=== PATIENT | female | born 1955 | race Caucasian/White ===

== ENCOUNTER 2020-11-16 09:29 | Emergency (ER) | payer MEDICARE ==
[2020-11-16 09:57] LABS: BASOPHIL 0.5 % (0-2); EOSINOPHIL 1.9 % (0-7); HGB 14.8 g/dl (12.5-16.0); MCH 29.8 pg (25.0-31.0); MCHC 30.8 g/dL (32.0-36.0); MCV 96.8 fL (78.0-100.0); MONOCYTE 5.1 % (0-12); MPV 9.4 fL (6.0-9.5); NEUTROPHIL 57.3 % (41-80); NRBC 0; PLT 285 K/uL (150-400); RBC 4.96 M/uL (4.20-5.40)
[2020-11-16 10:02] LABS: LYMPHOCYTE 34.9 % (15-48)
[2020-11-16 10:09] LABS: INR 1.07 (0.9-1.2); PROTHROMBIN TIME 13.2 SECONDS (11.4-13.6); PTT 30.1 SECONDS (22.2-34.7)
[2020-11-16 10:21] LABS: ALBUMIN 3.3 g/dL (3.4-5.0); BILIRUBIN - TOTAL 0.4 mg/dL (0.2-1.0); BUN/CREAT RATIO (CALC) 18.8 RATIO; CREATININE 1.28 mg/dL (0.51-0.95); GLOBULIN (CALCULATION) 4.4 g/dL; POTASSIUM 4.2 mmol/L (3.5-5.1); TOTAL PROTEIN 7.7 g/dL (6.4-8.2)
[2020-11-16 10:23] LABS: PRO-BNP 228 pg/mL (<125)
[2020-11-16 10:29] LABS: LACTIC ACID 4.4 mmol/L (0.4-1.9)
== END 2020-11-16 11:04 | disposition other institution (70) ==
LOC: FER 09:29
PROVIDERS: Emergency Medicine
DX: I44.2 Atrioventricular block, complete (principal); I45.10 Unspecified right bundle-branch block; Z85.3 Personal history of malignant neoplasm of breast; Z85.038 Personal history of other malignant neoplasm of large intestine; Z88.2 Allergy status to sulfonamides; Z20.822 Contact with and (suspected) exposure to COVID-19; Z79.899 Other long term (current) drug therapy
CPT/HCPCS: 36415; 71045; 80053; 83605; 83615; 83735; 83880; 84443; 84484; 85025; 85610; 85730; 93005; J7030; U0002

== ENCOUNTER 2021-01-04 09:10 | Emergency (ER) | payer MEDICARE ==
[2021-01-04 10:03] LABS: ALBUMIN 3.2 g/dL (3.4-5.0); BASOPHIL 0.4 % (0-2); BILIRUBIN - TOTAL 0.3 mg/dL (0.2-1.0); BUN/CREAT RATIO (CALC) 19.4 RATIO; CREATININE 1.03 mg/dL (0.51-0.95); EOSINOPHIL 2.9 % (0-7); GLOBULIN (CALCULATION) 4.4 g/dL; HCT 43.4 % (37.0-47.0); HGB 13.9 g/dl (12.5-16.0); LYMPHOCYTE 33.7 % (15-48); MCH 29.8 pg (25.0-31.0); MCV 93.1 fL (78.0-100.0); MONOCYTE 6.6 % (0-12); MPV 9.6 fL (6.0-9.5); NEUTROPHIL 56.1 % (41-80); NRBC 0; PLT 233 K/uL (150-400); RBC 4.66 M/uL (4.20-5.40); RDW 14.6 % (11.5-14.0); TOTAL PROTEIN 7.6 g/dL (6.4-8.2); WBC 9.2 K/uL (4.0-10.5)
[2021-01-04 10:05] LABS: INR 1.05 (0.9-1.2); PTT 32.4 SECONDS (22.2-34.7)
== END 2021-01-04 13:31 | disposition home or self-care (01) ==
LOC: FER 09:10
PROVIDERS: Emergency Medicine
DX: R07.9 Chest pain, unspecified (principal); R55 Syncope and collapse; I45.10 Unspecified right bundle-branch block; M10.9 Gout, unspecified; F17.200 Nicotine dependence, unspecified, uncomplicated; Z95.0 Presence of cardiac pacemaker; Z79.899 Other long term (current) drug therapy; Z88.2 Allergy status to sulfonamides
CPT/HCPCS: 36415; 71045; 80053; 84484; 85025; 85610; 85730; 93005

== ENCOUNTER 2021-12-06 12:09 | Emergency (ER) | payer MEDICARE ==
[~2021-12-06] VITALS: Ht 160 cm; Wt 104.3 kg
[2021-12-06 14:00] LABS: BASOPHIL 0.3 % (0-2); EOSINOPHIL 0 % (0-7); HCT 45.8 % (37.0-47.0); HGB 14.6 g/dl (12.5-16.0); MCHC 31.9 g/dL (32.0-36.0); MCV 90.9 fL (78.0-100.0); MONOCYTE 2.3 % (0-12); MPV 9.3 fL (6.0-9.5); NEUTROPHIL 88.9 % (41-80); NRBC 0.1; PLT 358 K/uL (150-400); RBC 5.04 M/uL (4.20-5.40); RDW 16.8 % (11.5-14.0)
[2021-12-06 14:03] LABS: WBC 32.6 K/uL (4.0-10.5)
[2021-12-06 14:20] LABS: LACTIC ACID 2.6 mmol/L (0.4-1.9)
[2021-12-06 14:34] LABS: ALBUMIN 2.2 g/dL (3.4-5.0); ALKALINE PHOSHATASE 307 U/L (46-116); ALT 62 U/L (14-59); AST 45 U/L (15-37); BILIRUBIN - TOTAL 0.7 mg/dL (0.2-1.0); BUN 42 mg/dL (7-18); BUN/CREAT RATIO (CALC) 30.4 RATIO; CHLORIDE 97 mmol/L (98-107); CO2 (BICARBONATE) 21 mmol/L (21-32); CREATININE 1.38 mg/dL (0.51-0.95); GLOBULIN (CALCULATION) 5.3 g/dL; GLUCOSE 107 mg/dL (74-106); POTASSIUM 5.7 mmol/L (3.5-5.1); TOTAL PROTEIN 7.5 g/dL (6.4-8.2)
[2021-12-06 14:35] LABS: C-REACTIVE PROTEIN > 18.00 mg/dL (<=0.90)
[2021-12-06 14:38] LABS: CORONAVIRUS 2019 SARS-COV-2 NEGATIVE (NEGATIVE); INFLUENZA A NAA NEGATIVE (NEGATIVE)
[2021-12-06 16:55] LABS: BILIRUBIN NEGATIVE (NEGATIVE); BLOOD 3+ Ery/uL (NEGATIVE); CLARITY CLEAR (CLEAR); COLOR YELLOW (YELLOW); GLUCOSE (U) NORMAL (NORMAL); LEUKOCYTES NEGATIVE Leu/uL (NEGATIVE); NITRITE NEGATIVE (NEGATIVE); PROTEIN 1+ mg/dL (NEGATIVE); SPECIFIC GRAVITY 1.025 (1.001-1.030); UROBILINOGEN 0.2 mg/dL (0.2-1.0); pH 5.5 (5.0-9.0)
[2021-12-06 17:06] LABS: URINARY WBC RARE
[2021-12-06 17:07] LABS: AMORPHOUS URATES CRYSTALS MODERATE; BACTERIA 1+
[2021-12-07 05:12] LABS: BASOPHIL 0.1 % (0-2); EOSINOPHIL 0 % (0-7); HCT 38.1 % (37.0-47.0); LYMPHOCYTE 5.7 % (15-48); MCH 29.4 pg (25.0-31.0); MCHC 31.5 g/dL (32.0-36.0); MCV 93.4 fL (78.0-100.0); MONOCYTE 4.2 % (0-12); MPV 9.2 fL (6.0-9.5); NRBC 0; PLT 289 K/uL (150-400); RBC 4.08 M/uL (4.20-5.40); WBC 24.4 K/uL (4.0-10.5)
[2021-12-07 05:19] LABS: NEUTROPHIL 87.6 % (41-80)
[2021-12-07 05:27] LABS: BUN/CREAT RATIO (CALC) 28.7 RATIO; CREATININE 1.22 mg/dL (0.51-0.95)
[2021-12-07 05:29] LABS: POTASSIUM 4.1 mmol/L (3.5-5.1)
[2021-12-08 04:16] LABS: HCT 35.3 % (37.0-47.0); HGB 11.3 g/dl (12.5-16.0); MCH 29.9 pg (25.0-31.0); MCV 93.4 fL (78.0-100.0); MPV 9.1 fL (6.0-9.5); RBC 3.78 M/uL (4.20-5.40); RDW 16.7 % (11.5-14.0); WBC 25.3 K/uL (4.0-10.5)
[2021-12-08 04:33] LABS: BUN/CREAT RATIO (CALC) 23.1 RATIO; CREATININE 1.21 mg/dL (0.51-0.95); MAGNESIUM 1.9 mg/dL (1.8-2.4); PHOSPHORUS 3.9 mg/dL (2.6-4.7); POTASSIUM 4.3 mmol/L (3.5-5.1)
== END 2021-12-08 09:31 | disposition other institution (70) ==
LOC: FER 12:09
PROVIDERS: Emergency Medicine; Internal Medicine
DX: A41.9 Sepsis, unspecified organism (principal); L03.213 Periorbital cellulitis; H05.20 Unspecified exophthalmos; I10 Essential (primary) hypertension; Z88.2 Allergy status to sulfonamides; Z20.822 Contact with and (suspected) exposure to COVID-19
CPT/HCPCS: 36415; 70450; 70480; 70487; 71045; 80048; 80053; 81001; 83605; 83735; 84100; 84145; 85025; 86140; 87040; 87088; 93005; 96372; J1650; J2543; J3370; J3480; J7030; J7040; J7050; Q9967; U0002